=== PATIENT | male | born 1990 | race African-American/Black ===

== ENCOUNTER 2019-01-02 05:34 | Emergency (ER) | payer SELFPAY ==
[~2019-01-02] VITALS: Ht 180.3 cm; Wt 66.0 kg
[2019-01-02] MEDS: MORPHINE SULFATE 4 MG/ML CPJ (NOT FOR IM USE) IV STA (07:22)
[2019-01-02] MEDS: ONDANSETRON HCL 4MG/2ML INJ IV STA (07:22)
[2019-01-02] MEDS: SODIUM CHLORIDE 0.9% 1,000 ML IV ONE (07:22)
[2019-01-02 07:29] LABS: EOSINOPHILS % 5.6 % (0.0-5.0); HEMATOCRIT. 37.4 % (42.0-52.0); HEMOGLOBIN. 12.4 g/dL (14.0-18.0); LYMPHOCYTES % 30.4 % (20.0-50.0); MEAN CORPUSCULAR HEMOGLOBIN 28.2 pg (28.0-32.0); MEAN CORPUSCULAR VOLUME 84.9 fL (80.0-94.0); MEAN PLATELET VOLUME 8.7 fl (7.4-10.4); PLATELET 237 x1000/uL (130-400); RED BLOOD CELL COUNT 4.41 mill/uL (4.7-6.1); RED CELL DISTRIBUTION WIDTH 13.3 % (11.6-14.6)
[2019-01-02 07:59] LABS: CHLORIDE 106 mEq/L (98-107)
[2019-01-02 08:27] LABS: CLARITY URINE CLEAR (CLEAR); COLOR URINE YELLOW (YELLOW); KETONES URINE NEGATIVE (NEGATIVE); LEUKOCYTE ESTERASE URINE NEGATIVE (NEGATIVE); NITRITE URINE NEGATIVE (NEGATIVE); OCCULT BLOOD URINE NEGATIVE (NEGATIVE); PROTEIN URINE NEGATIVE (NEGATIVE); SPECIFIC GRAVITY URINE 1.006 (1.005-1.030); UROBILINOGEN URINE 0.2 E.U./dL (0.2-1.0)
[2019-01-02] MEDS: METOCLOPRAMIDE HCL 10MG/2ML VIAL IV ONE (09:26)
[2019-01-02 10:49] VITALS: BP 130/64
== END 2019-01-02 10:59 | disposition home or self-care (01) ==
LOC: ER 05:34
DX: R10.9 Unspecified abdominal pain (principal); R11.0 Nausea; R19.7 Diarrhea, unspecified
CPT/HCPCS: 36415; 74177; 80053; 81003; 83690; 85025; 96361; 96374; 96375; 99284; J2270; J2405; J2765; J7030

== ENCOUNTER 2019-01-13 02:46 | Emergency (ER) | payer SELFPAY ==
[~2019-01-13] VITALS: Ht 180.3 cm; Wt 66.0 kg
[2019-01-13] MEDS ORDERED: LORAZEPAM 0.5MG TABLET PO ONE (03:15)
[2019-01-13 03:28] VITALS: BP 132/76
== END 2019-01-13 04:46 | disposition home or self-care (01) ==
LOC: ER 02:46
DX: R07.9 Chest pain, unspecified (principal)
CPT/HCPCS: 71045; 99282

== ENCOUNTER 2020-02-17 19:03 | Emergency (ER) | payer SELFPAY ==
[~2020-02-17] VITALS: Ht 180.3 cm; Wt 66.0 kg
[2020-02-17] MEDS ORDERED: KETOROLAC 30MG/ML VIAL IM ONE (19:30)
[2020-02-17] MEDS ORDERED: PROPOFOL 200MG/20ML VIAL IV ONE (20:15)
[2020-02-17] MEDS ORDERED: KETAMINE HCL 50 MG/ML 10ML IV ONE (20:15)
[2020-02-17 23:00] VITALS: BP 118/68
== END 2020-02-17 23:22 | disposition home or self-care (01) ==
LOC: ER 19:03
DX: M24.411 Recurrent dislocation, right shoulder (principal); W18.2XXA Fall in (into) shower or empty bathtub, initial encounter; Y93.89 Activity, other specified; Y92.89 Other specified places as the place of occurrence of the external cause; Y99.8 Other external cause status
CPT/HCPCS: 23650; 73030; 96372; 99152; 99285; J1885; J2704; J3490; L3670

== ENCOUNTER 2021-04-02 02:17 | Emergency (ER) | payer MEDICAID ==
[~2021-04-02] VITALS: Ht 180.3 cm; Wt 61.0 kg
[2021-04-02] MEDS ORDERED: KETOROLAC 30MG/ML VIAL IV STA (03:10)
[2021-04-02] MEDS ORDERED: ONDANSETRON 4MG ODT PO ONE (03:15)
[2021-04-02] MEDS ORDERED: SODIUM CHLORIDE 0.9% 1,000 ML IV ONE (03:15)
[2021-04-02] MEDS ORDERED: FAMOTIDINE 20MG/2ML VIAL IV ONE (03:15)
[2021-04-02 03:40] LABS: CHLORIDE 105 mEq/L (98-107)
[2021-04-02 03:44] LABS: CLARITY URINE CLEAR (CLEAR); COLOR URINE YELLOW (YELLOW); KETONES URINE NEGATIVE (NEGATIVE); LEUKOCYTE ESTERASE URINE NEGATIVE (NEGATIVE); NITRITE URINE NEGATIVE (NEGATIVE); OCCULT BLOOD URINE NEGATIVE (NEGATIVE); PH URINE 5.5 (4.5-8.0); PROTEIN URINE NEGATIVE (NEGATIVE); SPECIFIC GRAVITY URINE 1.006 (1.005-1.030); UROBILINOGEN URINE 0.2 E.U./dL (0.2-1.0)
[2021-04-02 04:03] LABS: HEMATOCRIT. 43.5 % (42.0-52.0); HEMOGLOBIN. 14.2 g/dL (14.0-18.0); MEAN CORPUSCULAR HEMOGLOBIN 27.9 pg (28.0-32.0); MEAN CORPUSCULAR VOLUME 85.6 fL (80.0-94.0); MEAN PLATELET VOLUME 8.8 fl (7.4-10.4); PLATELET 312 x1000/uL (130-400); RED BLOOD CELL COUNT 5.08 mill/uL (4.7-6.1); RED CELL DISTRIBUTION WIDTH 14.9 % (11.6-14.6)
[2021-04-02 04:45] VITALS: BP 115/73
[2021-04-02] MEDS ORDERED: ACET-2708 PO (04:55)
[2021-04-02] MEDS ORDERED: BISM-77 PO (04:55)
[2021-04-02 05:27] LABS: PLATELET ESTIMATE NORMAL
== END 2021-04-02 06:33 | disposition home or self-care (01) ==
LOC: ER 02:17
DX: K52.9 Noninfective gastroenteritis and colitis, unspecified (principal); R10.9 Unspecified abdominal pain
CPT/HCPCS: 36415; 80053; 81003; 83690; 85025; 96361; 96374; 96375; 99284; J1885; J3490; J7030; Q0162

== ENCOUNTER 2022-03-29 13:24 | Emergency (ER) | payer MEDICAID, OTHER ==
[~2022-03-29] VITALS: Ht 175.3 cm; Wt 61.0 kg
[~2022-03-29 13:24] MED LIST: ACET-2708 PO; BISM-77 PO
[2022-03-29 13:31] VITALS: BP 139/85
== END 2022-03-29 17:48 | disposition left against medical advice (07) ==
LOC: ER 13:24
DX: M25.511 Pain in right shoulder (principal)
CPT/HCPCS: 99281